=== PATIENT | female | born 1990 | race Two or more races ===

== ENCOUNTER 2019-09-05 12:38 | Emergency (ER) | payer SELFPAY ==
[2019-09-05 12:51] VITALS: BP 130/97
--- NOTE | 2019-09-05 13:16 | NUR ---
PT TO ROOM FROM LOBBY, GAIT STEADY
[2019-09-05] MEDS ORDERED: HYDROcodone/APAP 5/325 TABLET PO ONE (13:30)
[2019-09-05] MEDS ORDERED: HYDROcodone/APAP 5/325 TABLET ONE (13:39)
--- NOTE | 2019-09-05 13:53 | NUR ---
PT GIVEN DC INSTRUCTIONS AND SCRIPT, EDUCATED REGARDING DC RX. PT A&O, RESPS EVEN AND UNLABORED, NADN. PT AMB TO DC DESK WITH STEADY GAIT ACCOMPANIED BY S/O WHO IS TO DRIVE PT HOME.
== END 2019-09-05 13:54 | disposition home or self-care (01) ==
LOC: ED 13:48
DX: K02.9 Dental caries, unspecified (principal)
CPT/HCPCS: 99283